=== PATIENT | male | born 1970 | race Caucasian/White ===

== ENCOUNTER 2017-04-06 14:16 | Emergency (ER) | payer OTHER ==
[~2017-04-06] VITALS: Ht 177.8 cm; Wt 80.0 kg
[~2017-04-06 14:16] MED LIST: INSU100V3 SC; JANU100T OR; LAMO100 PO; LEXA10TA OR; METF-324 PO; NEUR600T PO; NOVOLOGSS; TIZA2CAP PO; XANA0.5T
[2017-04-06 14:17] VITALS: BP 137/98; PULSE 121; RESP 14; TEMP 98.1; O2SAT 100
[2017-04-06] MEDS ORDERED: LANTUS2P SQ (15:34)
[2017-04-06] MEDS ORDERED: BACT800T5 PO (15:55)
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
[2017-04-06] MEDS ORDERED: AZIT250T3 PO (16:43)
== END 2017-04-06 16:54 | disposition home or self-care (01) ==
LOC: NEPD 14:16
DX: T23.231A Burn of second degree of multiple right fingers (nail), not including thumb, initial encounter (principal); F11.10 Opioid abuse, uncomplicated; E11.9 Type 2 diabetes mellitus without complications; X19.XXXA Contact with other heat and hot substances, initial encounter; Z79.899 Other long term (current) drug therapy; Z79.4 Long term (current) use of insulin; Z88.8 Allergy status to other drugs, medicaments and biological substances
CPT/HCPCS: 99283

== ENCOUNTER 2017-07-16 05:51 | Emergency (ER) | payer BC, OTHER ==
[~2017-07-16] VITALS: Ht 177.8 cm; Wt 80.0 kg
[~2017-07-16 05:51] MED LIST changes: +AZIT250T3 PO; -INSU100V3 SC; -JANU100T OR; -LAMO100 PO; +LANTUS2P SQ; -LEXA10TA OR; -METF-324 PO; -NEUR600T PO; -NOVOLOGSS; -TIZA2CAP PO; -XANA0.5T
[2017-07-16 06:06] VITALS: BP 137/72; PULSE 102; RESP 20; TEMP 98.4; O2SAT 100
[2017-07-16] MEDS ORDERED: METF500T PO (06:09)
[2017-07-16] MEDS ORDERED: SULFAMETHOXAZOLE-TRIMETHOPRIM DS 800-160 MG TAB PO ONE (06:30)
[2017-07-16] MEDS ORDERED: CLINDAMYCIN PHOS 600 MG/4 ML VIAL IM ONE (06:30)
[2017-07-16] MEDS ORDERED: IBUP-232 PO (06:39)
[2017-07-16] MEDS ORDERED: CLIN150C14 PO (06:39)
[2017-07-16] MEDS ORDERED: BACT800T5 PO (06:39)
--- NOTE | 2017-07-16 06:39 | PD ---
HPI Chief Complaint: Skin Problem Time Seen by Provider: 06:18 Travel History International Travel<30 days: No Contact w/Intl Traveler<30days: No Traveled to known affect area: No History of Present Illness HPI 46-year-old male complains of pain and swelling right wrist. Patient has history IV drug abuse. Patient states that he has increasing pain swelling right wrist for the past week. Patient denies any fever chills. Patient denies any chest pain or shortness of breath. Patient is up-to-date with TD booster. PFSH Past Medical History Diabetes: Yes (DM type; takes lantus and metformin ) Patient Takes Glucophage: Yes Gastrointestinal Disorders: Yes Tetanus Vaccination: < 5 Years Past Surgical History Abdominal Surgery: Yes Appendectomy: Yes Other Surgery: Yes Social History Alcohol Use: Yes (A FEW DRINKS A WEEK) Tobacco Use: No Substance Use: Yes (HEROIN ) Allergies-Medications (Allergen,Severity, Reaction): Coded Allergies: diatrizoate meglumine (Verified Allergy, Severe, 07/16/17) sneezing after given contrast gadobenic acid (Verified Allergy, Severe, 07/16/17) sneezing after given contrast gadodiamide (Verified Allergy, Severe, 07/16/17) sneezing after given contrast gadoteridol (Verified Allergy, Severe, 07/16/17) sneezing after given contrast iodixanol (Verified Allergy, Severe, 07/16/17) sneezing after given contrast iohexol (Verified Allergy, Severe, 07/16/17) sneezing after given contrast Reported Meds & Prescriptions Reported Meds & Active Scripts Active Reported Metformin (Metformin HCl) 500 Mg Tab 500 Mg PO BIDPC Lantus Inj (Insulin Glargine) 1,000 Unit/10 Ml Vial 70 Units SQ BID Review of Systems General / Constitutional: No: Fever Eyes: No: Visual changes HENT: No: Headaches Cardiovascular: No: Chest Pain or Discomfort Respiratory: No: Shortness of Breath Gastrointestinal: No: Abdominal Pain Genitourinary: No: Dysuria Musculoskeletal: Positive: Pain Skin: No Rash Neurologic: No: Weakness Psychiatric: No: Depression Endocrine: No: Polydipsia Hematologic/Lymphatic: No: Easy Bruising Physical Exam Narrative GENERAL: Well-nourished, well-developed patient. SKIN: Focused skin assessment warm/dry. HEAD: Normocephalic. EYES: No scleral icterus. No injection or drainage. NECK: Supple, trachea midline. No JVD or lymphadenopathy. CARDIOVASCULAR: Regular rate and rhythm without murmurs, gallops, or rubs. RESPIRATORY: Breath sounds equal bilaterally. No accessory muscle use. GASTROINTESTINAL: Abdomen soft, non-tender, nondistended. MUSCULOSKELETAL: No cyanosis, or edema. BACK: Nontender without obvious deformity. No CVA tenderness. Patient has an area of redness swelling induration with pustule blister on the anterior aspect the right wrist. Full range of motion of the fingers. Data Data Last Documented VS Vital Signs Date Time Temp Pulse Resp B/P (MAP) Pulse Ox O2 Delivery O2 Flow Rate FiO2 07/16/17 06:06 98.4 102 20 137/72 (93) 100 Room Air Orders Orders Wound Culture And Gram Stain (07/16/17 06:29) Clindamycin Inj (Cleocin Inj) (07/16/17 06:30) Sulfamet-Trimeth Ds 800-160 Mg (Bactrim (07/16/17 06:30) MDM Medical Decision Making Medical Screen Exam Complete: Yes Emergency Medical Condition: Yes Differential Diagnosis Differential diagnosis including cellulitis, abscess. Narrative Course 46-year-old male with redness swelling tenderness induration anterior aspect right wrist. History IV drug abuse. Clindamycin 60 mg IM. Bactrim DS 1 tablet p.o. given. Procedures Procedure Narrative Betadine wash. Small incision was made on the lesion on the right wrist with # 11 scalpel. A large amount of pus recovered. Wound culture obtained. Dressing applied. Diagnosis Primary Impression: Abscess of bursa, right wrist Patient Instructions: General Instructions Additional Instructions: Take medications as directed. Wound care daily. Follow-up with personal physician. Return if increasing redness swelling. Med/Other Pt SpecificInfo: Prescription(s) given Scripts Ibuprofen (Ibuprofen) 600 Mg Tab 600 MG PO TID for Pain, #30 TAB 0 Refills Prov: Adria Schmidt MD 07/16/17 Sulfamethoxazole-Trimethoprim (Bactrim DS) 800-160 Mg Tab 1 TAB PO BID for Infection, #20 TAB 0 Refills Prov: Adria Schmidt MD 07/16/17 Clindamycin (Clindamycin) 150 Mg Cap 300 MG PO QID for Infection, #80 CAP 0 Refills Prov: Adria Schmidt MD 07/16/17 Disposition: 01 DISCHARGE HOME Condition: Stable Adria Schmidt MD Jul 16, 2017 06:39
[2017-07-16] MEDS ORDERED: IBUPROFEN 600 MG TAB PO ONE (06:45)
== END 2017-07-16 07:00 | disposition home or self-care (01) ==
LOC: NEPE 05:51
DX: M71.031 Abscess of bursa, right wrist (principal); B95.1 Streptococcus, group B, as the cause of diseases classified elsewhere; E11.9 Type 2 diabetes mellitus without complications; F11.10 Opioid abuse, uncomplicated
CPT/HCPCS: 10060; 86403; 87070; 96372

== ENCOUNTER 2017-07-19 10:23 | Emergency (ER) | payer BC, OTHER ==
[~2017-07-19 10:23] MED LIST changes: -AZIT250T3 PO; +BACT800T5 PO; +CLIN150C14 PO; +IBUP-232 PO; +METF500T PO
[2017-07-19 10:37] VITALS: BP 100/63; PULSE 87; RESP 16; TEMP 98.3; O2SAT 97
--- NOTE | 2017-07-19 11:40 | PD ---
HPI Chief Complaint: Skin Problem Time Seen by Provider: 11:33 Travel History International Travel<30 days: No Contact w/Intl Traveler<30days: No Traveled to known affect area: No History of Present Illness HPI Patient comes emergency department for recheck of abscess that was I&D 3 days ago. Patient reports taking his antibiotics as prescribed and changing dressing twice daily. Patient reports that it appears to be getting better to him, and just came in for recheck. Denies any fevers. 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 Patient reports it continues to drain. Describes pain as a burning/soreness. Pain is worse to palpation. Denies any radiation of the pain. PFSH Past Medical History Diabetes: Yes (DM type; takes lantus and metformin ) Gastrointestinal Disorders: Yes Past Surgical History Abdominal Surgery: Yes Appendectomy: Yes Other Surgery: Yes Social History Alcohol Use: Yes (A FEW DRINKS A WEEK) Tobacco Use: No Substance Use: Yes (HEROIN ) Allergies-Medications (Allergen,Severity, Reaction): Coded Allergies: diatrizoate meglumine (Verified Allergy, Severe, 07/19/17) sneezing after given contrast gadobenic acid (Verified Allergy, Severe, 07/19/17) sneezing after given contrast gadodiamide (Verified Allergy, Severe, 07/19/17) sneezing after given contrast gadoteridol (Verified Allergy, Severe, 07/19/17) sneezing after given contrast iodixanol (Verified Allergy, Severe, 07/19/17) sneezing after given contrast iohexol (Verified Allergy, Severe, 07/19/17) sneezing after given contrast Reported Meds & Prescriptions Reported Meds & Active Scripts Active Ibuprofen 600 Mg Tab 600 Mg PO TID Bactrim DS (Sulfamethoxazole-Trimethoprim) 800-160 Mg Tab 1 Tab PO BID Clindamycin (Clindamycin HCl) 150 Mg Cap 300 Mg PO QID Reported Metformin (Metformin HCl) 500 Mg Tab 500 Mg PO BIDPC Lantus Inj (Insulin Glargine) 1,000 Unit/10 Ml Vial 70 Units SQ BID Review of Systems Except as stated in HPI: all other systems reviewed are Neg Physical Exam Narrative GENERAL: Well-developed, well nourished, in no acute distress, and non-ill appearing. SKIN: Draining abscess noted on the volar surface of the right wrist. There is mild surrounding erythematous. There is no crepitus. Is tender to palpation. No streaking. HEAD: Atraumatic. Normocephalic. EYES: Pupils equal and round. EOMI. No scleral icterus. No injection or drainage. ENT: No nasal bleeding or discharge. Mucous membranes pink and moist. NECK: Trachea midline. Supple. No nuclear rigidity. RESPIRATORY: No accessory muscle use. No respiratory distress. MUSCULOSKELETAL: No obvious deformities. No clubbing. No cyanosis. No edema. Full range of motion. NEUROLOGICAL: Awake and alert. No obvious cranial nerve deficits. Motor grossly within normal limits. Normal speech. PSYCHIATRIC: Appropriate mood and affect; insight and judgment normal. Data Data Last Documented VS Vital Signs Date Time Temp Pulse Resp B/P (MAP) Pulse Ox O2 Delivery O2 Flow Rate FiO2 07/19/17 10:37 98.3 87 16 100/63 (75) 97 Orders Orders Ed Discharge Order (07/19/17 11:40) MDM Medical Decision Making Medical Screen Exam Complete: Yes Emergency Medical Condition: Yes Differential Diagnosis Abscess, cellulitis, wound recheck, gangrene Narrative Course There is no evidence of necrotizing fasciitis at this time. There is continued draining from previous abscess I&D. There is no evidence of local joint space involvement. There is no evidence of deep venous thrombosis. The patient was instructed to finish all previously prescribed antibiotics. The patient was given signs and symptoms warnings for worsening infection, such as spreading of redness, increasing pain, and/or swelling, associated heat, or fever and instructed to return immediately if these signs or symptoms worsen. The patient is to follow up with physician or return here in for recheck. Patient was instructed to return here sooner if worsens or as needed. The patient agrees with plan. Patient in no obvious distress upon re-evaluation. Any questions/concerns in reference to patient diagnosis/condition discussed and clarified prior to patient's discharge. Reinforced sheer importance of close follow up with patient 's primary physician or primary care clinic. Instructed patient to return to ED immediately, if symptoms return/worsen. Patient showed understanding of above instructions. Further instructions and recommendations were detailed in discharge paperwork. Patient ambulated without difficulty out of ED at discharge. Procedures Procedure Narrative Verbal consent was obtained. Abscess was cleaned and irrigated using copious amounts of normal saline. Patient tolerated procedure well. There is no complications Diagnosis Primary Impression: Abscess re-check [facility]: [facility] Patient Instructions: Acute Wound Care (DC), General Instructions Additional Instructions: Follow-up with your primary care physician and/or wound care in 3-5 days for reevaluation. Take all medication as previously prescribed. Keep area dry and clean as possible using soap and water. Apply warm compresses to facilitate continued drainage. Do not soak or submerge wound. Return to the emergency department if symptoms get worse or fevers develop. Disposition: 01 DISCHARGE HOME Condition: Stable Gagan Raymundo Jul 19, 2017 11:40
== END 2017-07-19 12:01 | disposition home or self-care (01) ==
LOC: NEPK 10:23
DX: Z09 Encounter for follow-up examination after completed treatment for conditions other than malignant neoplasm (principal); Z48.01 Encounter for change or removal of surgical wound dressing
CPT/HCPCS: 99281